=== PATIENT | female | born 1975 | race Caucasian/White ===

== ENCOUNTER → 2017-12-15 | Outpatient (CLI) | payer MEDICARE, MEDICAID ==
[~2017-12-15] MED LIST: BUTALB-APAP-CA1 EACH PO; CARBAMAZEPINE200 M2 PO; CELEBREX400 MG PO; COZAAR 50 MG TA50 M2 PO; ESTRADIOL 1 MG T1 M1 PO; IBUPROFEN 800800 M1 PO; LIORESAL 10 MG10 MG PO; MOBIC15 MG PO; NEURONTIN600 MG PO; NORVASC2.5 MG PO; TOPROL XL25 MG PO
--- NOTE | 2018-01-11 14:16 | PAINCON ---
[address] [address] PAIN MANAGEMENT CONSULTATION Name: LUCIDULCE Mario Room: [facility].#: [id number] Admission: 12/15/17 Attend Phys: Lewis Diez MD Discharge: Date of : 77 Report #: [id number] THIS REPORT FOR: //name// [facility] CHIEF COMPLAINT: Chronic headache pain, back pain, and multiple sclerosis. HISTORY OF PRESENT ILLNESS: The patient is a 42-year-old female who has been referred to the Pain Clinic for evaluation of chronic pain. The patient states she has a history of chronic headaches. She has been treated with Botox injections in the past. She has noted some improvement in that headache problem. She also takes ibuprofen on a regular basis 800 mg t.i.d. Feels that this medication as well is helpful in relieving her pain and discomfort. She has a history of low back pain. She has not had back surgery. The patient states she started to notice signs of multiple sclerosis back in 2011. Had some problems with her vision. Has had some problems with her hearing. Has been provided with some hearing aid, which has been helpful in decreasing and her headache problems. She states that she has undergone physical therapy. Feels that her other medications continued to help with the symptoms that she has creepy crawly sensation, which has been helped with some gabapentin. She feels the baclofen did help well. Does have a history of hot flashes. She has a problem with trigeminal neuralgia. She states that the carbamazepine medication is helpful. The patient continues to undergo Botox injections, which are helpful. The patient states that her neurologist has been back to the Pain Clinic if there were other options other than continued use of ibuprofen. She feels that this is one of the medications that might make difficult to help control her headaches. Does continue to have chronic back pain. ALLERGIES: No known drug allergies. CURRENT MEDICATIONS: Norvasc 2.5 mg, baclofen 20 mg 4 times daily, Fioricet q.8h., carbamazepine 200 mg b.i.d., Estrace 0.5 grams daily, Neurontin 600 mg 4 times, Mobic, Motrin 800 mg p.o. t.i.d., losartan 50 mg, metoprolol 25 mg daily. PAST MEDICAL HISTORY: 1. Hypertension. 2. Multiple sclerosis. 3. Trigeminal neuralgia. 4. Chronic headache disorder. 5. Depression/anxiety. PAST SURGICAL HISTORY: Tonsillectomy, 1978; carpal tunnel release x 2 2013 and 2003, section x 2 2004, 2006, oophorectomy in 2012, hysterectomy in [address]. [place] [address] PAIN MANAGEMENT CONSULTATION Name: DULCE VERMA Room: [facility]#: [id number] Admission: 12/15/17 Attend Phys: Lewis Diez MD Discharge: Date of : 77 Report #: [id number] SOCIAL HISTORY: Disabled. Has not worked since 2011, new onset of multiple sclerosis. REVIEW OF SYSTEMS: Indicate fever, night sweats, fatigue, weakness, headaches, eye problems secondary to multiple sclerosis, blurred or double vision, hearing/ringing in ears, chronic sinus problems, palpitations, chronic cough, shortness of breath, asthma, wheezing, incontinence, dribbling, joint pain, joint stiffness, weakness of muscles, muscle pain, cramps, back pain, difficulty walking, numbness and tingling sensation. LABORATORY DATA: MRI of the lumbar spine without contrast dated 10/07/2017 reveals images demonstrate mild degenerative changes of disk at L5-S1 form of loss of normal signal characteristics, the disk height is well maintained. The disk at the remainder levels appear unremarkable. There is no evidence of posterior protrusion or extrusion of disk material. There is no evidence of abnormal signal within the vertebral body. Distal spinal cord also demonstrates no evidence of abnormal signal. There is no evidence of contrast enhancing lesion within the distal spinal cord. There is no evidence of spinal stenosis. MRI of the cervical spine dated 10/08/2015 show images compared with previous exam, 03/29/2014 images demonstrate the previously described intradural oval shaped BT shunt that is hyperintense on T2 weighted image of the cervical spinal cord to the right at the level of T2. The disk measures 15 mm in cephalocaudad dimension, 4.3 mm in AP dimension, and 6.4 mm in transverse dimension. Previous measurement were listed. There is no evidence of accompanying contrast enhancement and no evidence of hypersensitivity. PAIN CLINIC ASSESSMENT: 1. The patient is not being treated for osteoarthritis or rheumatoid arthritis. 2. Height 5 feet 5 inches, weight 181 pounds, BMI 30.3. 3. Vital Signs: Blood pressure 126/79, heart rate 65, respiratory rate 16, room air saturation 95%, temperature 98.6. 4. Pain intensity /10. 5. Fall risk. The patient has not fallen in the last 3 months. 6. Blood thinner. The patient is not on a blood thinning medication. 7. History of hypertension. The patient is being treated for hypertension. 8. Opioid therapy greater than 6 weeks. The patient is not on an opioid regimen. 9. Risk assessment tool low for opioid use. 10. Functional assessment tool. 11. Recreational drug. The patient denies use of recreational drugs. 12. Tobacco. The patient admits to smoking cigarettes, smokes 1 pack per day, has smoked for the past 20 years. 13. Alcohol. Denies use of alcoholic beverages. PHYSICAL EXAMINATION: [facility] [address] [place] [address] PAIN MANAGEMENT CONSULTATION Name: LUCIDULCE Mario Room: [facility]#: [id number] Admission: 12/15/17 Attend Phys: Lewis Diez MD Discharge: Date of : 77 Report #: [id number] GENERAL: The patient is a well-developed, well-nourished white female. She appears her stated age. She is alert and oriented x 3. Affect is appropriate. Speech is fluent. HEENT: Normocephalic, atraumatic. Extraocular eye muscles intact. Decreased movement of her forehead. She has had Botox injections. NECK: Good range of motion without adenopathy or JVD. HEART: Regular rate. S1, S2. LUNGS: Clear to auscultation. MUSCULOSKELETAL: Upper extremity muscle strength is judged to be generally 5/5 for the major muscle groups in the upper extremities, the patient has pain and discomfort in the right costophrenic area. The patient does cause a significant amount of pain and discomfort in her low back. Lower extremity muscle strength is judged to be generally 5/5. The patient has decreased sensation to pinprick and needle sensation over the right anterior portion of her leg and dorsum foot. Notes pain and discomfort in her back, standing erect, complains of pain in the lower back area with pressure, which makes her feel like she is "holding 5 pounds." Notes that her pain worsens with correct posture. Her arm movement can exacerbate back pain. Notes exacerbation of back pain and discomfort, particularly when she is carrying the ladder. IMPRESSION: 1. Chronic headaches. 2. Multiple sclerosis. 3. Hypertension. 4. Use of tobacco. 5. Chronic back pain. 6. Trigeminal neuralgia. 7. Menopause. RECOMMENDATIONS: We discussed the patient's history with her. She states that use of nonsteroidal anti-inflammatory medications have been quite helpful. We have discussed other options. I am not sure that any options will be more effective than nonsteroidal anti-inflammatory medications in her current situation in the low back area. We will use a different class of NSAID. . She can try Mobic to see whether or not she gleaned any benefit from this medication. A script for Mobic has been written. She will give this medication a try and follow up in the near future. We would like to thank you for letting us participate in her care. We hope she continues to improve. <ELECTRONICALLY SIGNED> By: Lewis Diez MD 01/11/18 1416 [id number]. Raleigh Diez MD /nt
== END ==
LOC: M.PC 03:52
DX: G35 Multiple sclerosis (principal); I10 Essential (primary) hypertension; G50.0 Trigeminal neuralgia; M54.5 Low back pain; G89.29 Other chronic pain; F41.9 Anxiety disorder, unspecified; F17.200 Nicotine dependence, unspecified, uncomplicated; Z78.0 Asymptomatic menopausal state

== ENCOUNTER → 2018-01-12 | Outpatient (CLI) | payer MEDICARE, MEDICAID ==
--- NOTE | 2018-01-27 08:37 | PAINCON ---
[address] [address] PAIN MANAGEMENT CONSULTATION Name: DULCE VERMA Room: [facility]#: [id number] Admission: 01/12/18 Attend Phys: Lewis Diez MD Discharge: Date of : 77 Report #: [id number] THIS REPORT FOR: //name// CC: Lewis Medina [facility] DATE OF SERVICE: 01/12/2018 CHIEF COMPLAINT: Headaches, back pain, multiple sclerosis. FOLLOWUP HISTORY: The patient is a 42-year-old female who has been seen in the Pain Clinic because of chronic pain. She states that she has a history of chronic headaches. She has been treated with Botox in the past. The patient has continued to have some low back pain as well. The patient states that she has been requested by her neurologist to decrease the amount of nonsteroidal medication that she is taking. She takes ibuprofen. It is felt that this might be attributing to her chronic headaches. The patient was given meloxicam. She states that she took it for 1 week and did not notice a significant improvement and stopped taking the medication. She states that she has been bedridden and that her mood is low secondary to pain and discomfort. She rates her pain as a 4-5/10. Activities such as bending, lifting, walking, standing, going up and down stairs have worsened her discomfort. ALLERGIES: No known drug allergies. CURRENT MEDICATIONS: Norvasc 2.5 mg, baclofen 20 mg four times a day, Fioricet q. 8 hours, carbamazepine 200 mg b.i.d., Estrace 0.5 grams daily, Neurontin 600 mg four times daily, Mobic, Motrin 800 mg t.i.d., losartan 50 mg, metoprolol 25 mg daily. PAIN CLINIC ASSESSMENT: 1. The patient is not being treated for osteoarthritis or rheumatoid arthritis. 2. Height 5 feet 5 inches, weight 182 pounds, BMI is 29. 3. Vital signs: Blood pressure 108/68, heart rate 68, respiratory rate 16, room air saturation 97%, temperature 98.2. 4. Pain score: 4-5/10. 5. Fall risk: The patient has not fallen since we saw her last. 6. Blood thinner: The patient is not on a blood thinning medication. 7. History of hypertension: The patient is not being treated for hypertension. 8. Opioid greater than 6 weeks: The patient is not on an opioid regimen. 9. Risk assessment tool. 10. Functional assessment tool. 11. Recreational drug use: The patient denies use of recreational drugs. 12. Tobacco: The patient does smoke 1 [place] [address] PAIN MANAGEMENT CONSULTATION Name: DULCE VERMA Room: [facility]#: [id number] Admission: 01/12/18 Attend Phys: Lewis Diez MD Discharge: Date of : 77 Report #: [id number] 13. Alcohol: The patient denies use of alcoholic beverages on a regular basis. PHYSICAL EXAMINATION: GENERAL: The patient is a well-developed, well-nourished white female. She appears her stated age. She is alert and oriented x 3. Affect is pleasant. Speech is fluent. HEENT: Normocephalic, atraumatic. Extraocular eye muscles are intact. Decreased range of motion of forehead. The patient is receiving Botox. NECK: Good range of motion, without adenopathy or JVD. HEART: Regular rate. S1, S2. LUNGS: Clear to auscultation. MUSCULOSKELETAL: Strength is judged to be generally 5/5 for the major muscle groups in the upper extremities. She complains of pain and discomfort in the low back, mid back areas. She also complains of a headache. The patient states that she gets about 2 headaches weekly. IMPRESSION: 1. Chronic headaches. 2. Multiple sclerosis. 3. Hypertension. 4. Use of tobacco. 5. Chronic back pain. 6. Trigeminal neuralgia. 7. Menopause. RECOMMENDATIONS: We discussed the options with the patient. We explained that there are a number of nonsteroidal anti-inflammatory medications in different classes. We will consider use of Celebrex. The patient states that she was not aware whether or not she had used Celebrex. A prescription for this medication was provided. We explained to the patient that use of tobacco can sometimes exacerbate chronic pain syndromes and that decreasing the tobacco use might be helpful. The patient was given this prescription. She departed. The prescription for Celebrex was found on the desk. The patient can return to the Pain Clinic should she choose. We would like to thank you for letting us participate in her care. We hope she continues to improve. <ELECTRONICALLY SIGNED> By: Lewis Diez MD 01/27/18 0837 [id number]. Raleigh Diez MD /marcos
== END ==
LOC: M.PC 02:13
DX: G35 Multiple sclerosis (principal); I10 Essential (primary) hypertension; M54.5 Low back pain; G50.0 Trigeminal neuralgia; G89.29 Other chronic pain; F17.200 Nicotine dependence, unspecified, uncomplicated; Z78.0 Asymptomatic menopausal state